=== PATIENT | female | born 1990 | race Caucasian/White ===

== ENCOUNTER 2021-05-13 14:25 | Emergency (ER) | payer OTHER ==
[2021-05-13 15:14] VITALS: RESP 18; TEMP 99
--- NOTE | 2021-05-13 15:55 | ED ---
General Adult HPI - General Chief complaint: Abdominal Pain Stated complaint: Vomiting,Abd pain Time Seen by Provider: 05/13/21 15:20 Source: patient Mode of arrival: ambulatory Limitations: no limitations - History of Present Illness Initial comments: Dictation was produced using [employer] dictation software. please excuse any grammatical, word or spelling errors. Chief Complaint: 30-year-old feel presents with right lower quadrant pain History of Present Illness: 30-year-old female with no significant past medical history presents emergency department for right lower quadrant abdominal pain. She woke up this morning and had pain in her right lower quadrant. She states that shortly after she began developing nausea and vomiting. She had multiple episodes of vomiting. She even at one point vomited up a small blood clot. She had mild fever this morning. Denies any history of abdominal surgery. Patient denies . Because she has not had any sexual activity in the last several months. Patient denies any vaginal discharge. Denies any dysuria. She denies any history of ovarian disease The ROS documented in this emergency department record has been reviewed and confirmed by me. Those systems with pertinent positive or negative responses have been documented in the HPI. All other systems are other negative and/or noncontributory. PHYSICAL EXAM: General Impression: Alert and oriented x3, not in acute distress HEENT: Normocephalic atraumatic, extra-ocular movements intact, pupils equal and reactive to light bilaterally, mucous membranes moist. Cardiovascular: Heart regular rate and rhythm Chest: Able to complete full sentences, no retractions, no tachypnea Abdomen: abdomen soft, tenderness in McBurney's point, non-distended, no organomegaly Musculoskeletal: Pulses present and equal in all extremities, no peripheral edema Motor: no focal deficits noted Neurological: CN II-XII grossly intact, no focal motor or sensory deficits noted Skin: Intact with no visualized rashes Psych: Normal affect and mood ED course: 30-year-old female presents emergency department for right lower quadrant pain. She also has constitutional symptoms. No history of abdominal surgery. Vital signs upon arrival shows temperature of 99.0, rest of vital signs within acceptable limits. Laboratory evaluation obtained. CBC, metabolic panel, abdominal labs are negative. Urinalysis is negative. Urine is negative. Computed tomography scan abdomen and pelvis shows no acute processes. No signs of a ppendicitis or ovarian pathology. - Related Data Home Medications Medication Instructions Recorded Confirmed No Known Home Medications 05/13/21 05/13/21 Allergies Allergy/AdvReac Type Severity Reaction Status Date / Time Iodinated Contrast Media Allergy Rash/Hives Verified 05/13/21 18:37 ketorolac [From Toradol] Allergy Rash/Hives Verified 05/13/21 18:37 tomato Allergy Swelling Verified 05/13/21 18:37 Review of Systems ROS Statement: Those systems with pertinent positive or pertinent negative responses have been documented in the HPI. ROS Other: All systems not noted in ROS Statement are negative. Past Medical History Past Medical History: No Reported History History of Any Multi-Drug Resistant Organisms: None Reported Past Surgical History: Section, Cholecystectomy Additional Past Surgical History / Comment(s): C-sec x 4 Past Psychological History: Anxiety Smoking Status: Never smoker Past Alcohol Use History: None Reported Past Drug Use History: None Reported General Exam Limitations: no limitations Course Vital Signs 05/13/21 05/13/21 15:09 16:14 Temperature 99.0 F Pulse Rate 99 82 Respiratory 18 18 Rate Blood Pressure 113/81 115/79 O2 Sat by Pulse 99 97 Oximetry Medical Decision Making - Lab Data Result diagrams: 05/13/21 16:12 05/13/21 16:12 Lab Results 05/13/21 05/13/21 05/13/21 Range/Units 16:12 16:12 16:12 WBC 7.0 (3.8-10.6) k/uL RBC 4.68 (3.80-5.40) m/uL Hgb 11.3 L (11.4-16.0) gm/dL Hct 36.4 (34.0-46.0) % MCV 77.8 L (80.0-100.0) fL MCH 24.2 L (25.0-35.0) pg MCHC 31.1 (31.0-37.0) g/dL RDW 15.6 H (11.5-15.5) % Plt Count 296 (150-450) k/uL MPV 8.2 Neutrophils % 79 % Lymphocytes % 14 % Monocytes % 4 % Eosinophils % 2 % Basophils % 0 % Neutrophils # 5.5 (1.3-7.7) k/uL Lymphocytes # 1.0 (1.0-4.8) k/uL Monocytes # 0.3 (0-1.0) k/uL Eosinophils # 0.1 (0-0.7) k/uL Basophils # 0.0 (0-0.2) k/uL Hypochromasia Moderate Microcytosis Slight Sodium 135 L (137-145) mmol/L Potassium 4.9 (3.5-5.1) mmol/L Chloride 104 (98-107) mmol/L Carbon Dioxide 20 L (22-30) mmol/L Anion Gap 11 mmol/L BUN 8 (7-17) mg/dL Creatinine 0.61 (0.52-1.04) mg/dL Est GFR (CKD-EPI)AfAm >90 (>60 ml/min/1.73 sqM) Est GFR (CKD-EPI)NonAf >90 (>60 ml/min/1.73 sqM) Glucose 87 (74-99) mg/dL Calcium 9.3 (8.4-10.2) mg/dL Total Bilirubin 0.9 (0.2-1.3) mg/dL AST 50 H (14-36) U/L ALT 14 (4-34) U/L Alkaline Phosphatase 55 (38-126) U/L Total Protein 8.3 H (6.3-8.2) g/dL Albumin 4.3 (3.5-5.0) g/dL Lipase 162 (23-300) U/L Urine Color Urine Appearance (Clear) Urine pH (5.0-8.0) Ur Specific [place] (1.001-1.035) Urine Protein (Negative) Urine Glucose (UA) (Negative) Urine Ketones (Negative) Urine Blood (Negative) Urine Nitrite (Negative) Urine Bilirubin (Negative) Urine Urobilinogen (<2.0) mg/dL Ur Leukocyte Esterase (Negative) Urine RBC (0-5) /hpf Urine WBC (0-5) /hpf Ur Squamous Epith Cells (0-4) /hpf Urine Bacteria (None) /hpf Urine Mucus (None) /hpf Urine HCG, Qual Not Detected (Not Detectd) 05/13/21 Range/Units 16:12 WBC (3.8-10.6) k/uL RBC (3.80-5.40) m/uL Hgb (11.4-16.0) gm/dL Hct (34.0-46.0) % MCV (80.0-100.0) fL MCH (25.0-35.0) pg MCHC (31.0-37.0) g/dL RDW (11.5-15.5) % Plt Count (150-450) k/uL MPV Neutrophils % % Lymphocytes % % Monocytes % % Eosinophils % % Basophils % % Neutrophils # (1.3-7.7) k/uL Lymphocytes # (1.0-4.8) k/uL Monocytes # (0-1.0) k/uL Eosinophils # (0-0.7) k/uL Basophils # (0-0.2) k/uL Hypochromasia Microcytosis Sodium (137-145) mmol/L Potassium (3.5-5.1) mmol/L Chloride (98-107) mmol/L Carbon Dioxide (22-30) mmol/L Anion Gap mmol/L BUN (7-17) mg/dL Creatinine (0.52-1.04) mg/dL Est GFR (CKD-EPI)AfAm (>60 ml/min/1.73 sqM) Est GFR (CKD-EPI)NonAf (>60 ml/min/1.73 sqM) Glucose (74-99) mg/dL Calcium (8.4-10.2) mg/dL Total Bilirubin (0.2-1.3) mg/dL AST (14-36) U/L ALT (4-34) U/L Alkaline Phosphatase (38-126) U/L Total Protein (6.3-8.2) g/dL Albumin (3.5-5.0) g/dL Lipase (23-300) U/L Urine Color Light Yellow Urine Appearance Cloudy H (Clear) Urine pH 7.0 (5.0-8.0) Ur Specific [place] 1.009 (1.001-1.035) Urine Protein Negative (Negative) Urine Glucose (UA) Negative (Negative) Urine Ketones Negative (Negative) Urine Blood Negative (Negative) Urine Nitrite Negative (Negative) Urine Bilirubin Negative (Negative) Urine Urobilinogen <2.0 (<2.0) mg/dL Ur Leukocyte Esterase Trace H (Negative) Urine RBC 1 (0-5) /hpf Urine WBC 3 (0-5) /hpf Ur Squamous Epith Cells 6 H (0-4) /hpf Urine Bacteria Rare H (None) /hpf Urine Mucus Rare H (None) /hpf Urine HCG, Qual (Not Detectd) Disposition Clinical Impression: Abdominal pain Disposition: HOME SELF-CARE Condition: Fair Instructions (If sedation given, give patient instructions): Abdominal Pain (ED) Is patient prescribed a controlled substance at d/c from ED?: No Referrals: None,Stated [Primary Care Provider] - 1-2 days
[2021-05-13 16:19] LABS: Basophils % (A) 0 %; Eosinophils # (A) 0.1 k/uL (0-0.7); Eosinophils % (A) 2 %; HCT 36.4 % (34.0-46.0); HGB 11.3 gm/dL (11.4-16.0); Hypochromasia Moderate; Lymphocytes % (A) 14 %; MCH 24.2 pg (25.0-35.0); MCHC 31.1 g/dL (31.0-37.0); MCV 77.8 fL (80.0-100.0); Mean Platelet Volume 8.2; Microcytosis Slight; Monocytes # (A) 0.3 k/uL (0-1.0); Monocytes % (A) 4 %; Neutrophils # (A) 5.5 k/uL (1.3-7.7); Neutrophils % (A) 79 %; Platelet Count 296 k/uL (150-450); RBC 4.68 m/uL (3.80-5.40); RDW 15.6 % (11.5-15.5)
[2021-05-13 16:39] LABS: Appearance,Urine Cloudy (Clear); Bacteria,Urine Rare /hpf; Bilirubin,Urine Negative (Negative); Blood,Urine Negative (Negative); Color,Urine Light Yellow; Glucose,Urine (UA) Negative (Negative); Ketones,Urine Negative (Negative); Leukocyte Esterase,Urine Trace (Negative); Mucus,Urine Rare /hpf; Nitrite,Urine Negative (Negative); Protein,Urine Negative (Negative); RBC,Urine 1 /hpf (0-5); Specific Gravity,Urine 1.009 (1.001-1.035); Squamous Epithelial Cell,Urine 6 /hpf (0-4); Urobilinogen,Urine <2.0 mg/dL (<2.0); WBC,Urine 3 /hpf (0-5)
[2021-05-13] MEDS ORDERED: ONDANSETRON 4 MG/2 ML VIAL IVP STA (16:40)
[2021-05-13] MEDS ORDERED: MORPHINE SULFATE 4 MG/ML SYRINGE IV STA ×2 (16:40→17:29)
[2021-05-13 17:31] LABS: ALT 14 U/L (4-34); AST 50 U/L (14-36); African American GFR (CKD) >90 (>60 ml/min/1.73 sqM); Albumin 4.3 g/dL (3.5-5.0); Alkaline Phosphatase 55 U/L (38-126); Anion Gap 11 mmol/L; Blood Urea Nitrogen 8 mg/dL (7-17); Calcium 9.3 mg/dL (8.4-10.2); Carbon Dioxide 20 mmol/L (22-30); Chloride 104 mmol/L (98-107); Glucose 87 mg/dL (74-99); Lipase 162 U/L (23-300); Non-African American GFR(CKD) >90 (>60 ml/min/1.73 sqM); Sodium 135 mmol/L (137-145); Total Bilirubin 0.9 mg/dL (0.2-1.3); Total Protein 8.3 g/dL (6.3-8.2)
[2021-05-13 17:39] LABS: Potassium 4.9 mmol/L (3.5-5.1)
[2021-05-13] MEDS ORDERED: diphenhydrAMINE 50 MG/ML 1 ML VIAL IVP STA (17:53)
[2021-05-13] MEDS ORDERED: methylPREDNISolone SOD SUCCI 125 MG/2 ML VIAL IV STA (17:53)
[2021-05-13] MEDS ORDERED: FAMOTIDINE 20 MG/2 ML VIAL IV STA (17:53)
[2021-05-13] MEDS ORDERED: HYDROmorphone 0.5 MG/0.5 ML SYRINGE IVP STA (18:22)
--- NOTE | 2021-05-13 19:16 | CT ---
EXAMINATION TYPE: CT abdomen pelvis w con DATE OF EXAM: 05/13/2021 COMPARISON: None HISTORY: Right lower quadrant pain. CT DLP: 725.5 mGycm Automated exposure control for dose reduction was used. TECHNIQUE: Helical acquisition of images was performed from the lung bases through the pelvis. CONTRAST: Performed without Oral Contrast and with IV Contrast, patient injected with 100 mL of Isovu e 300. FINDINGS: LUNG BASES: No significant abnormality is appreciated. LIVER/GB: No significant abnormality is appreciated. PANCREAS: No significant abnormality is seen. SPLEEN: No significant abnormality is seen. ADRENALS: No significant abnormality is seen. KIDNEYS: No significant abnormality is seen. FREE AIR: No free air is visualized. RETROPERITONEAL ADENOPATHY: None visualized REPRODUCTIVE ORGANS: No significant abnormality is seen URINARY BLADDER: No significant abnormality is seen. PELVIC ADENOPATHY: None visualized. OSSEOUS STRUCTURES: No significant abnormality is seen. BOWEL: No significant abnormality is seen. OTHER: No acute vascular findings. IMPRESSION: NO ACUTE CT PROCESS.
[2021-05-13 23:53] VITALS: BP 129/87; PULSE 88
== END 2021-05-13 23:53 | disposition home or self-care (01) ==
LOC: EC 14:25
DX: R10.31 Right lower quadrant pain (principal)
CPT/HCPCS: 36415; 80053; 83690; 85025; 81001; 81025; 74177; 99284; 96374; 96375 ×5; 96376; J2270; J1200; J2930; J2405; J1170; Q9967

== ENCOUNTER 2021-05-16 12:15 | Emergency (ER) | payer OTHER ==
[2021-05-16 12:33] VITALS: RESP 18
[2021-05-16] MEDS ORDERED: HYDROmorphone 0.5 MG/0.5 ML SYRINGE IVP STA (12:47)
[2021-05-16] MEDS ORDERED: PANTOPRAZOLE 40 MG/10 ML VIAL IVP STA (12:47)
[2021-05-16] MEDS ORDERED: SODIUM CHLORIDE 0.9% 1,000 ML IV STA (12:47)
[2021-05-16] MEDS ORDERED: ONDANSETRON 4 MG/2 ML VIAL IVP STA (12:47)
--- NOTE | 2021-05-16 12:51 | ED ---
General Adult HPI - General Source: patient Mode of arrival: ambulatory Limitations: no limitations <Gato Leiva Shelli - Last Filed: 05/16/21 15:49> <Laura Eden Nusrat - Last Filed: 05/19/21 00:23> - General Chief complaint: GI Bleed Stated complaint: vomiting blood/revisit Time Seen by Provider: 05/16/21 12:36 - History of Present Illness Initial comments: Dictation was produced using [employer] dictation software. please excuse any grammatical, word or spelling errors. Chief Complaint: 30-year-old yasmeen presents to the emergency Department for hematemesis History of Present Illness: 30-year-old female she was seen by me in the emergency department 3 days ago. Patient is here for hematemesis. States that she had an episode 3 days ago but had since resolved since being in the emergency room for this morning she woke up and had some epigastric abdominal pain. She went to the bathroom vomited had bright red blood. Patient has never been diagnosed with peptic ulcer disease. Denies any black or dark stools or bloody stools. No fever chills. No constitutional symptoms. Patient does not use tobacco products. No caffeine. Patient does not drink alcohol. The ROS documented in this emergency department record has been reviewed and confirmed by me. Those systems with pertinent positive or negative responses have been documented in the HPI. All other systems are other negative and/or noncontributory. PHYSICAL EXAM: General Impression: Alert and oriented x3, not in acute distress HEENT: Normocephalic atraumatic, extra-ocular movements intact, pupils equal and reactive to light bilaterally, mucous membranes moist. Cardiovascular: Heart regular rate and rhythm Chest: Able to complete full sentences, no retractions, no tachypnea Abdomen: abdomen soft, mild epigastric tenderness, non-distended, no organomegaly Musculoskeletal: Pulses present and equal in all extremities, no peripheral edema Motor: no focal deficits noted Neurological: CN II-XII grossly intact, no focal motor or sensory deficits noted Skin: Intact with no visualized rashes Psych: Normal affect and mood ED course: 30-year-old yasmeen presents to the emergency department for hematemesis. Vital Signs upon arrival shows heart rate of 107, rest of vital signs within acceptable limits. Laboratory evaluation was unremarkable. patient is not . Patient given Protonix and IV analgesia. Patient had no recurrent episodes of hematemesis at the bedside. Case discussed with Dr. Mcbride who requests the patient try to be transferred over given the current status of the health system transfers are nearly impossible. Spoke with Dr. Fernandez who is agreeable to see the patient if there is no suspicion of variceal bleeding. I likely the patient suffered from variceal bleeds given that she is 30 has no liver disease as a non-drinker. Called multiple hospitals. Finally spoke with Stephaniedora Vick. Spoke with Dr. Falcon who is willing to accept patients care for transfer. She requests that I write down basic orders for the nurse to initiate once patient arrives at [facility]. 1. 0.9% normal saline at a rate of 120 mL per hour 2. Nothing by mouth 3. Protonix 40 mg IV twice a day 4. Cardiac monitoring 5. Dilaudid 0.5 mg every 3 hours when necessary severe pain 6. 325 mg Tylenol when necessary fever Q8 hours 7. Zofran 4 mg IV push when necessary nausea every 8 hours (Gato Leiva) - Related Data Home Medications Medication Instructions Recorded Confirmed No Known Home Medications 05/13/21 05/16/21 Allergies Allergy/AdvReac Type Severity Reaction Status Date / Time Iodinated Contrast Media Allergy Rash/Hives Verified 05/16/21 13:55 ketorolac [From Toradol] Allergy Rash/Hives Verified 05/16/21 13:55 tomato Allergy Swelling Verified 05/16/21 13:55 Review of Systems ROS Other: All systems not noted in ROS Statement are negative. <Gato Leiva - Last Filed: 05/16/21 15:49> ROS Other: All systems not noted in ROS Statement are negative. <Laura Eden - Last Filed: 05/19/21 00:23> ROS Statement: Those systems with pertinent positive or pertinent negative responses have been documented in the HPI. Past Medical History Past Medical History: No Reported History History of Any Multi-Drug Resistant Organisms: None Reported Past Surgical History: Section, Cholecystectomy Additional Past Surgical History / Comment(s): C-sec x 4 Past Psychological History: Anxiety Smoking Status: Never smoker Past Alcohol Use History: None Reported Past Drug Use History: None Reported <Gato Leiva - Last Filed: 05/16/21 15:49> General Exam Limitations: no limitations <Gato Leiva - Last Filed: 05/16/21 15:49> Course Vital Signs 05/16/21 05/16/21 12:28 15:58 Temperature 99.0 F 98 F Pulse Rate 107 H 80 Respiratory 18 18 Rate Blood Pressure 121/70 109/73 O2 Sat by Pulse 97 100 Oximetry Medical Decision Making - Lab Data Result diagrams: 05/16/21 13:49 05/16/21 13:49 <Gato Leiva - Last Filed: 05/16/21 15:49> - Lab Data Result diagrams: 05/16/21 13:49 05/16/21 13:49 <Laura Eden - Last Filed: 05/19/21 00:23> - Medical Decision Making Patient has been accepted at [facility]. Patient then voices that she does not want to be transferred to that facility because she will not have a ride back. I inform her that we do not have a GI doc available at our facility and so if the patient has some type of decompensation due to her upper GI bleed we will be unable to manage it. Patient understands this and is refusing to be transferred. Patient is willing to accept the risks of permanent disability and even by refusing transfer. Dr. Leiva had previously spoken to Dr. Mcbride and Dr. Fernandez who would be willing to admit/consult on the patient. After the patient is admitted to our hospital, I am notified that the patient wants to leave AGAINST MEDICAL ADVICE. (Laura Eden) - Lab Data Lab Results 05/16/21 05/16/21 05/16/21 Range/Units 13:49 13:49 16:22 WBC 5.4 (3.8-10.6) k/uL RBC 4.59 (3.80-5.40) m/uL Hgb 11.1 L (11.4-16.0) gm/dL Hct 36.2 (34.0-46.0) % MCV 78.9 L (80.0-100.0) fL MCH 24.2 L (25.0-35.0) pg MCHC 30.7 L (31.0-37.0) g/dL RDW 16.0 H (11.5-15.5) % Plt Count 256 (150-450) k/uL MPV 7.5 Neutrophils % 73 % Lymphocytes % 19 % Monocytes % 6 % Eosinophils % 0 % Basophils % 0 % Neutrophils # 4.0 (1.3-7.7) k/uL Lymphocytes # 1.0 (1.0-4.8) k/uL Monocytes # 0.3 (0-1.0) k/uL Eosinophils # 0.0 (0-0.7) k/uL Basophils # 0.0 (0-0.2) k/uL Hypochromasia Marked Microcytosis Slight Sodium 136 L (137-145) mmol/L Potassium 4.6 (3.5-5.1) mmol/L Chloride 106 (98-107) mmol/L Carbon Dioxide 19 L (22-30) mmol/L Anion Gap 11 mmol/L BUN 12 (7-17) mg/dL Creatinine 0.61 (0.52-1.04) mg/dL Est GFR (CKD-EPI)AfAm >90 (>60 ml/min/1.73 sqM) Est GFR (CKD-EPI)NonAf >90 (>60 ml/min/1.73 sqM) Glucose 87 (74-99) mg/dL Calcium 8.9 (8.4-10.2) mg/dL HCG, Quant <2.4 mIU/mL Coronavirus (PCR) Not Detected (Not Detectd) Disposition <Gato Leiva - Last Filed: 05/16/21 15:49> Is patient prescribed a controlled substance at d/c from ED?: No Decision to Admit Reason: Admit from EC Decision Date: 05/16/21 Decision Time: 17:12 <Laura Eden - Last Filed: 05/19/21 00:23> Clinical Impression: Hematemesis Disposition: Left Against Medical Advice Condition: Undetermined Referrals: None,Stated [Primary Care Provider] - 1-2 days
[2021-05-16 14:05] LABS: Basophils % (A) 0 %; Eosinophils % (A) 0 %; HCT 36.2 % (34.0-46.0); HGB 11.1 gm/dL (11.4-16.0); Hypochromasia Marked; Lymphocytes % (A) 19 %; MCH 24.2 pg (25.0-35.0); MCHC 30.7 g/dL (31.0-37.0); MCV 78.9 fL (80.0-100.0); Mean Platelet Volume 7.5; Microcytosis Slight; Monocytes # (A) 0.3 k/uL (0-1.0); Monocytes % (A) 6 %; Neutrophils % (A) 73 %; Platelet Count 256 k/uL (150-450); RBC 4.59 m/uL (3.80-5.40); WBC 5.4 k/uL (3.8-10.6)
[2021-05-16 14:11] LABS: Chloride 106 mmol/L (98-107)
[2021-05-16 14:13] LABS: African American GFR (CKD) >90 (>60 ml/min/1.73 sqM); Anion Gap 11 mmol/L; Blood Urea Nitrogen 12 mg/dL (7-17); Calcium 8.9 mg/dL (8.4-10.2); Carbon Dioxide 19 mmol/L (22-30); Glucose 87 mg/dL (74-99); Non-African American GFR(CKD) >90 (>60 ml/min/1.73 sqM); Potassium 4.6 mmol/L (3.5-5.1); Sodium 136 mmol/L (137-145)
[2021-05-16 14:30] LABS: HCG,Quantitative Serum <2.4 mIU/mL
[2021-05-16] MEDS ORDERED: ACETAMINOPHEN TAB 325 MG TAB PO PRN (15:34)
[2021-05-16] MEDS ORDERED: NALOXONE 0.4 MG/ML 1 ML VIAL IV PRN (15:34)
[2021-05-16] MEDS ORDERED: HYDROmorphone 0.5 MG/0.5 ML SYRINGE IVP PRN (15:34)
[2021-05-16] MEDS ORDERED: ONDANSETRON 4 MG/2 ML VIAL IVP PRN (15:34)
[2021-05-16] MEDS ORDERED: SODIUM CHLORIDE 0.9% 1,000 ML IV SCH (15:45)
[2021-05-16 15:59] VITALS: BP 109/73; PULSE 80; TEMP 98
== END 2021-05-16 17:26 | disposition left against medical advice (07) ==
LOC: EC 12:15
DX: K92.0 Hematemesis (principal); F41.9 Anxiety disorder, unspecified
CPT/HCPCS: 36415; 80048; 85025; 84702; 87635; 99284; 96374; 96375 ×2; 96376 ×2; 96361 ×2; J2405; C9113; J1170